=== PATIENT | male | born 1945 | race Caucasian/White ===

== ENCOUNTER 2020-10-07 12:12 | Inpatient (IN) ==
[2020-10-07 13:21] LABS: BUN/Creatinine Ratio 38 (6-26); Blood Urea Nitrogen 33 mg/dL (8-23); Calcium 8.8 mg/dL (8.6-10.3); Carbon Dioxide 24 mEq/L (23-29); Chloride 102 mEq/L (98-107); Glucose 83 mg/dL (70-105); Osmolality,Calculated 296 (280-300); Potassium 4.3 mEq/L (3.5-5.1); Sodium 140 mEq/L (136-145); eGFR For African Americans > 60 (> 60); eGFR For Non-African Americans > 60 (> 60)
[2020-10-07 14:03] LABS: Hematocrit 20.1 % (37.5-50.1); Hemoglobin 6.2 g/dL (12.9-16.9); Immature Platelets 6.4 % (1.1-6.1); Mean Corpuscular HGB Conc 30.8 g/dL (31.6-35.5); Mean Corpuscular Volume 116.9 fL (83.0-100.0); Mean Platelet Volume 10.9 fL (9.4-12.4); Monocytes # 0.2 K/mcL (0.0-1.3); Red Blood Count 1.72 M/mcL (4.19-5.50)
[2020-10-07 14:12] LABS: Platelet Count 17 K/mcL (140-400)
[2020-10-07 14:39] LABS: Lymphocytes # 0.2 K/mcL (0.6-4.6); Neutrophils # 3.7 K/mcL (1.6-8.9); Platelet Estimate Marked Decrease (Normal)
[2020-10-07 14:40] LABS: Anisocytosis 1+ (Not Present)
[2020-10-07 17:57] LABS: Bilirubin,Urine Negative (Negative); Blood,Urine Negative (Negative); Clarity,Urine Clear (Clear); Color,Urine Light-Yellow (Yellow); Glucose,Urine (UA) Normal (Normal); Ketones,Urine Negative (Negative); Leukocyte Esterase,Urine Negative (Negative); Nitrite,Urine Negative (Negative); PH,Urine 5.5 pH Units (5.0-8.0); Protein,Urine Negative (Neg-Trace); Specific Gravity,Urine 1.013 (1.010-1.025); Urobilinogen,Urine Normal (Normal)
[2020-10-07 20:31] LABS: Mean Corpuscular HGB Conc 31.9 g/dL (31.6-35.5); Mean Corpuscular Hemoglobin 34.2 pg (28.0-33.3)
[2020-10-07 20:46] LABS: Hemoglobin 6.7 g/dL (12.9-16.9); Immature Platelets 4.9 % (1.1-6.1); Mean Corpuscular Volume 107.1 fL (83.0-100.0); Mean Platelet Volume 10.5 fL (9.4-12.4); Red Blood Count 1.96 M/mcL (4.19-5.50); White Blood Count 3.8 K/mcL (4.3-11.1)
[2020-10-07] MEDS ORDERED: Ondansetron 4 MG/2 ML VIAL IVP PRN (20:48)
[2020-10-07] MEDS ORDERED: Naloxone 0.4 MG/ML INJ IVP PRN (20:48)
[2020-10-07 20:52] LABS: Platelet Count 24 K/mcL (140-400)
[2020-10-07 21:22] LABS: Neutrophils # 3.4 K/mcL (1.6-8.9)
[2020-10-07 21:23] LABS: Lymphocytes # 0.2 K/mcL (0.6-4.6)
[2020-10-07 21:25] LABS: Anisocytosis 2+ (Not Present); Platelet Estimate Marked Decrease (Normal)
[2020-10-07 21:26] LABS: Hypochromasia Present (Not Present); Microcytosis Present (Not Present)
[2020-10-07 22:47] LABS: Bilirubin,Urine Negative (Negative); Blood,Urine Negative (Negative); Clarity,Urine Clear (Clear); Color,Urine Light-Yellow (Yellow); Glucose,Urine (UA) Normal (Normal); Ketones,Urine Negative (Negative); Leukocyte Esterase,Urine Negative (Negative); Mucus,Urine Few per lpf (None-Few); Nitrite,Urine Negative (Negative); PH,Urine 5.5 pH Units (5.0-8.0); Protein,Urine Negative (Neg-Trace); RBC,Urine 0-3 per hpf (0-3); Specific Gravity,Urine 1.013 (1.010-1.025); Urobilinogen,Urine Normal (Normal); WBC,Urine 0-3 per hpf (0-3)
[2020-10-07] MEDS ORDERED: Cefepime HCl 2,000 MG in Water for inj. (sterile) 20 ML IVP ONE (23:00)
[2020-10-07] MEDS ORDERED: Acetaminophen 325 MG TABLET PO PRN (23:40)
[2020-10-08 00:50] LABS: INR 1.2; Prothrombin Time 13.4 Seconds (9.4-12.1)
[2020-10-08 00:53] LABS: Activated Partial Thrombo Time 25.3 Seconds (26.0-36.0)
[2020-10-08 00:58] LABS: BUN/Creatinine Ratio 33 (6-26); Blood Urea Nitrogen 25 mg/dL (8-23); Calcium 8.4 mg/dL (8.6-10.3); Carbon Dioxide 27 mEq/L (23-29); Chloride 102 mEq/L (98-107); Glucose 98 mg/dL (70-105); Mean Corpuscular Volume 108.5 fL (83.0-100.0); Osmolality,Calculated 292 (280-300); Potassium 4.3 mEq/L (3.5-5.1); Sodium 139 mEq/L (136-145); eGFR For African Americans > 60 (> 60); eGFR For Non-African Americans > 60 (> 60)
[2020-10-08 01:00] LABS: Hematocrit 23.1 % (37.5-50.1); Hemoglobin 7.2 g/dL (12.9-16.9); Lymphocytes # 0.1 K/mcL (0.6-4.6); Mean Corpuscular HGB Conc 31.2 g/dL (31.6-35.5); Mean Corpuscular Hemoglobin 33.8 pg (28.0-33.3); Mean Platelet Volume 10.3 fL (9.4-12.4); Monocytes # 0.2 K/mcL (0.0-1.3); Red Blood Count 2.13 M/mcL (4.19-5.50); White Blood Count 4.2 K/mcL (4.3-11.1)
[2020-10-08 01:18] LABS: Platelet Count 22 K/mcL (140-400)
[2020-10-08 01:47] LABS: Adenovirus Not Detected (Not Detect); Bordetella Pertussis Not Detected (Not Detect); Chlamydophila pneumoniae Not Detected (Not Detect); Coronavirus 229E Not Detected (Not Detect); Coronavirus HKU1 Not Detected (Not Detect); Coronavirus NL63 Not Detected (Not Detect); Coronavirus OC43 Not Detected (Not Detect); Human Metapneumovirus Not Detected (Not Detect); Human Rhinovirus/Enterovirus Not Detected (Not Detect); Influenza A Subtype 2009 H1 Not Detected (Not Detect); Influenza B Not Detected (Not Detect); Mycoplasma pneumoniae Not Detected (Not Detect); Parainfluenza Virus 1 Not Detected (Not Detect); Parainfluenza Virus 2 Not Detected (Not Detect); Parainfluenza Virus 3 Not Detected (Not Detect); Parainfluenza Virus 4 Not Detected (Not Detect); Respiratory Syncytial Virus Not Detected (Not Detect); SARS-CoV-2 Not Detected (Not Detect)
[2020-10-08 02:29] LABS: Toxic Granulation Present (Not Present)
[2020-10-08 02:30] LABS: Anisocytosis 2+ (Not Present); Dohle Bodies Present (Not Present); Platelet Estimate Marked Decrease (Normal)
[2020-10-08] MEDS: DilTIAZem CD (24hr) 120 MG CAP.ER.24H PO SCH (08:52)
[2020-10-08] MEDS: valACYclovir 500 MG TABLET PO SCH (08:52)
[2020-10-08] MEDS: amLODIPine 5 MG TABLET PO SCH ×3 (08:53→09:00)
[2020-10-08] MEDS: Cefepime HCl 2,000 MG in 0.9 % Sodium Chloride Mini Bag 100 ML IVPB SCH ×3 (10:22→23:57)
[2020-10-09 03:36] LABS: Eosinophils % 0.9 %; Lymphocytes % 3.6 %; Red Blood Count 1.85 M/mcL (4.19-5.50)
[2020-10-09 03:38] LABS: Basophils % 0.5 %; Hematocrit 19.6 % (37.5-50.1); Hemoglobin 6.3 g/dL (12.9-16.9); Immature Granulocytes % 3.2 % (0-4); Immature Platelets 8.4 % (1.1-6.1); Lymphocytes # 0.1 K/mcL (0.6-4.6); Mean Corpuscular HGB Conc 32.1 g/dL (31.6-35.5); Mean Corpuscular Hemoglobin 34.1 pg (28.0-33.3); Mean Corpuscular Volume 105.9 fL (83.0-100.0); Mean Platelet Volume 11.3 fL (9.4-12.4); Monocytes # 0.1 K/mcL (0.0-1.3); Monocytes % 6.4 %; Neutrophils # 1.9 K/mcL (1.6-8.9); Nucleated Red Blood Cells 0.9 /100 WBC (0); Segmented Neutrophils % 85.4 %; White Blood Count 2.2 K/mcL (4.3-11.1)
[2020-10-09 03:44] LABS: Platelet Count 19 K/mcL (140-400)
[2020-10-09 03:56] LABS: BUN/Creatinine Ratio 30 (6-26); Blood Urea Nitrogen 24 mg/dL (8-23); Calcium 8.3 mg/dL (8.6-10.3); Carbon Dioxide 26 mEq/L (23-29); Chloride 99 mEq/L (98-107); Glucose 93 mg/dL (70-105); Osmolality,Calculated 286 (280-300); Potassium 3.7 mEq/L (3.5-5.1); Sodium 136 mEq/L (136-145); eGFR For African Americans > 60 (> 60); eGFR For Non-African Americans > 60 (> 60)
[2020-10-09 03:59] LABS: Hypochromasia Present (Not Present); Platelet Estimate Marked Decrease (Normal)
[2020-10-09] MEDS: DilTIAZem CD (24hr) 120 MG CAP.ER.24H PO SCH (08:07)
[2020-10-09] MEDS: Cefepime HCl 2,000 MG in 0.9 % Sodium Chloride Mini Bag 100 ML IVPB SCH (08:09)
[2020-10-09] MEDS: valACYclovir 500 MG TABLET PO SCH (08:09)
[2020-10-09] MEDS: amLODIPine 5 MG TABLET PO SCH (08:12)
[2020-10-09] MEDS ORDERED: 0.9 % Sodium Chloride 250 ML IVC SCH (09:30)
[2020-10-09 20:20] VITALS: BP 182/66
== END 2020-10-09 21:40 | disposition home or self-care (01) | DRG 840 ==
LOC: 3NENU 12:12 → EMEROOARM 12:12 → SUATTDRO 21:07 → 3NENU 22:25
PROVIDERS: ADMIT Student in an Organized Health Care Education/Training Program; ATTEND Internal Medicine